=== PATIENT | female | born 1995 | race Two or more races ===

== ENCOUNTER 2021-04-08 11:22 | Emergency (ER) | payer SELFPAY ==
[~2021-04-08] VITALS: Ht 160 cm; Wt 88.9 kg
[2021-04-08 11:29] VITALS: BP 123/85
--- NOTE | 2021-04-08 11:35 | NUR ---
SEEN AND EXAMINED BY .
--- NOTE | 2021-04-08 11:38 | NUR ---
DAIRY CONSULTANT AT BEDSIDE FOR XRAY.
[2021-04-08] MEDS ORDERED: TDAP [DIPH/PERTUSSIS/TET] 0.5 ML VIAL IM ONE ×2 (11:41→12:00)
--- NOTE | 2021-04-08 11:50 | NUR ---
IDA KNOX AT BEDSIDE FOR WOUND CLEANING AND DRESSING.
--- NOTE | 2021-04-08 12:30 | NUR ---
Patient discharged to home in stable condition. Written and verbal after care instructions given. Patient verbalizes understanding of instruction.
== END 2021-04-08 12:31 | disposition home or self-care (01) ==
LOC: ER 11:22
DX: S80.01XA Contusion of right knee, initial encounter (principal); W01.0XXA Fall on same level from slipping, tripping and stumbling without subsequent striking against object, initial encounter; Y93.89 Activity, other specified; Y92.89 Other specified places as the place of occurrence of the external cause; Y99.8 Other external cause status
CPT/HCPCS: 73564-TC; 90715

== ENCOUNTER 2022-03-21 17:48 | Emergency (ER) | payer OTHER ==
[~2022-03-21] VITALS: Ht 157.5 cm; Wt 97.5 kg
--- NOTE | 2022-03-21 18:15 | NUR ---
julia "chest pain started 1H ago going to back pressure like. 03/04"
--- NOTE | 2022-03-21 18:20 | NUR ---
established IV line 20g left forearm
[2022-03-21] MEDS ORDERED: MORPHINE SULFATE INJ 2 MG/ML DISP.SYRIN ONE (18:56)
[2022-03-21] MEDS ORDERED: LIDOCAINE VISCOUS 2% UD 15 ML UDC ONE (18:56)
[2022-03-21] MEDS ORDERED: MAG HYDROX/AL HYDROX/SIMETH 30 ML UDC ONE (18:56)
[2022-03-21] MEDS: MAG HYDROX/AL HYDROX/SIMETH 30 ML UDC PO ONE (19:00)
[2022-03-21] MEDS: LIDOCAINE VISCOUS 2% UD 15 ML UDC MM ONE (19:00)
[2022-03-21] MEDS: MORPHINE SULFATE INJ 2 MG/ML DISP.SYRIN IV ONE (19:02)
--- NOTE | 2022-03-21 19:21 | NUR ---
US TECH AT PT'S BEDSIDE
[2022-03-21 19:47] LABS: CREATININE 0.8 mg/dL (0.6-1.3); POTASSIUM 4.1 mmol/L (3.5-5.1)
[2022-03-21 19:52] LABS: ALBUMIN 3.9 g/dL (3.4-5.0); BILIRUBIN,DIRECT 0.1 mg/dL (0.0-0.2); BILIRUBIN,TOTAL 0.4 mg/dL (0.2-1.0); TOTAL PROTEIN, SERUM 7.9 g/dL (6.4-8.2)
[2022-03-21 20:05] LABS: BASOPHILS % (AUTO) 0.2 % (0.0-2.0); EOSINOPHILS % (AUTO) 1.7 % (0.0-6.0); HEMATOCRIT 42 % (33-45); HEMOGLOBIN 14.7 g/dL (11.5-14.8); LYMPHOCYTES # (AUTO) 1.8 K/uL (0.8-4.8); LYMPHOCYTES % (AUTO) 18.7 % (20.0-44.0); MEAN CORPUSCULAR HGB CONC 35 g/dl (31.0-36.0); MEAN CORPUSCULAR VOLUME 91 fL (82-100); MONOCYTES # (AUTO) 0.5 K/uL (0.1-1.30); MONOCYTES % (AUTO) 5.6 % (2.0-12.0); NEUTROPHILS # (AUTO) 7.2 K/uL (1.8-8.9); NEUTROPHILS % (AUTO) 73.8 % (43.0-81.0); PLATELET COUNT (AUTO) 304 K/uL (150-450); WHITE BLOOD COUNT (AUTO) 9.7 K/uL (4.3-11.0)
[2022-03-21] MEDS ORDERED: OMEP20TA5 PO (21:17)
[2022-03-21 21:20] LABS: BILIRUBIN,URINE NEGATIVE (NEGATIVE); COLOR,URINE YELLOW (YELLOW); LEUKOCYTE ESTERASE ,URINE NEGATIVE (NEGATIVE); NITRITE, URINE NEGATIVE (NEGATIVE); PH,URINE 5.5 (5.0-8.0); PROTEIN,URINE NEGATIVE (NEGATIVE); UGLUCOSE NEGATIVE (NEGATIVE); UROBILINOGEN,URINE 0.2 EU/dL (0.2)
[2022-03-21 21:42] VITALS: BP 131/81
--- NOTE | 2022-03-21 21:42 | NUR ---
Patient discharged to home in stable condition. RX Written and verbal after care instructions given. Patient verbalizes understanding of instruction. IV removed. Catheter intact and site benign. Pressure and 4x4 applied to site. No bleeding noted. pt ambulatory with a steady gait
== END 2022-03-21 21:43 | disposition home or self-care (01) ==
LOC: ER 17:54
DX: R10.13 Epigastric pain (principal); K29.70 Gastritis, unspecified, without bleeding; R10.11 Right upper quadrant pain; R10.31 Right lower quadrant pain; Z79.899 Other long term (current) drug therapy
CPT/HCPCS: 99285; 96374; 76700; 71045; 93005 ×2; 85025; 80048; 83690; 80076; 84703; 81003; 36415; J2270

== ENCOUNTER 2022-08-04 11:58 | Emergency (ER) | payer OTHER ==
[~2022-08-04] VITALS: Ht 160 cm; Wt 86.2 kg
[~2022-08-04 11:58] MED LIST: OMEP20TA5 PO
[2022-08-04 12:10] VITALS: BP 134/76
--- NOTE | 2022-08-04 12:42 | NUR ---
PT IN BED 1 A/O X4 SAYS SHE ROLLED HER LEFT ANKLE AND IS NOW EXPERIENCING PAIN 8/10. LEFT ANKLE IS SWOLLEN AND WARM TO TOUCH. PT ALIYA VEGA.
[2022-08-04] MEDS ORDERED: KETOROLAC TROMETHAMINE INJ 30 MG/ML VIAL ONE (12:55)
[2022-08-04] MEDS ORDERED: KETOROLAC TROMETHAMINE INJ 30 MG/ML VIAL IM ONE (13:00)
[2022-08-04] MEDS ORDERED: IBUP-1955 PO (13:21)
--- NOTE | 2022-08-04 13:48 | NUR ---
Patient discharged to home in stable condition. Written and verbal after care instructions given. Patient verbalizes understanding of instruction.
== END 2022-08-04 13:54 | disposition home or self-care (01) ==
LOC: ER 12:04
DX: S93.402A Sprain of unspecified ligament of left ankle, initial encounter (principal); Z79.899 Other long term (current) drug therapy; W18.30XA Fall on same level, unspecified, initial encounter; Y93.89 Activity, other specified; Y92.89 Other specified places as the place of occurrence of the external cause; Y99.8 Other external cause status
CPT/HCPCS: 99283; 96372; 73610; J1885

== ENCOUNTER 2022-08-12 18:25 | Emergency (ER) | payer OTHER ==
[~2022-08-12 18:25] MED LIST changes: +IBUP-1955 PO
--- NOTE | 2022-08-12 19:41 | NUR ---
CALLED FOR TRIAGE. NO ROSIE.
--- NOTE | 2022-08-12 19:54 | NUR ---
CALLED FOR TRIAGE. NO ROSIE.
== END 2022-08-12 19:58 | disposition left against medical advice (07) ==
LOC: ER 18:30
DX: Z53.21 Procedure and treatment not carried out due to patient leaving prior to being seen by health care provider (principal)

== ENCOUNTER 2022-10-07 15:16 | Inpatient (IN) | payer OTHER ==
[~2022-10-07] VITALS: Ht 160 cm; Wt 96.2 kg
--- NOTE | 2022-10-07 15:22 | NUR ---
LOW ABDOMINAL PAIN AND BLOOD IN HER STOOL X 1 WEEK
--- NOTE | 2022-10-07 15:28 | NUR ---
URINE SAMPLE OBTAINED SENT TO LAB
--- NOTE | 2022-10-07 15:54 | NUR ---
IV ESTABLISHED L AC 20G. LABS DRAWN AND COLLECTED AT BEDSIDE
[2022-10-07 16:06] LABS: BASOPHILS % (AUTO) 0.3 % (0.0-2.0); EOSINOPHILS % (AUTO) 1.2 % (0.0-6.0); HEMATOCRIT 43 % (33-45); HEMOGLOBIN 14.3 g/dL (11.5-14.8); LYMPHOCYTES # (AUTO) 1.6 K/uL (0.8-4.8); LYMPHOCYTES % (AUTO) 16.4 % (20.0-44.0); MEAN CORPUSCULAR HGB CONC 33 g/dl (31.0-36.0); MEAN CORPUSCULAR VOLUME 93 fL (82-100); MONOCYTES # (AUTO) 0.7 K/uL (0.1-1.30); NEUTROPHILS # (AUTO) 7.3 K/uL (1.8-8.9); NEUTROPHILS % (AUTO) 75.1 % (43.0-81.0); PLATELET COUNT (AUTO) 291 K/uL (150-450); RED BLOOD CELL COUNT(AUTO) 4.58 MIL/uL (4.0-5.2); WHITE BLOOD COUNT (AUTO) 9.7 K/uL (4.3-11.0)
[2022-10-07] MEDS ORDERED: ONDANSETRON HCL/PF 4 MG/2 ML VIAL ONE ×2 (16:11→18:42)
[2022-10-07] MEDS ORDERED: MORPHINE SULFATE INJ 4 MG/ML DISP.SYRIN ONE (16:11)
[2022-10-07 16:14] LABS: BILIRUBIN,URINE NEGATIVE (NEGATIVE); COLOR,URINE YELLOW (YELLOW); LEUKOCYTE ESTERASE ,URINE NEGATIVE (NEGATIVE); NITRITE, URINE NEGATIVE (NEGATIVE); PH,URINE 5.5 (5.0-8.0); PROTEIN,URINE NEGATIVE (NEGATIVE); UGLUCOSE NEGATIVE (NEGATIVE); UROBILINOGEN,URINE 0.2 EU/dL (0.2)
[2022-10-07 16:23] LABS: CALCIUM, SERUM 8.7 mg/dL (8.5-10.1); CREATININE 0.6 mg/dL (0.6-1.3)
[2022-10-07 16:28] LABS: ALBUMIN 3.5 g/dL (3.4-5.0); BILIRUBIN,DIRECT 0.1 mg/dL (0.0-0.2); BILIRUBIN,TOTAL 0.6 mg/dL (0.2-1.0); TOTAL PROTEIN, SERUM 7.3 g/dL (6.4-8.2)
[2022-10-07] MEDS ORDERED: ONDANSETRON HCL/PF 4 MG/2 ML VIAL IV ONE (16:30)
[2022-10-07] MEDS ORDERED: MORPHINE SULFATE INJ 2 MG/ML DISP.SYRIN IV ONE (16:30)
[2022-10-07 17:01] LABS: BACTERIA,URINE None seen /HPF (None Seen); MUCUS,URINE Moderate /LPF (None Seen); RBC,URINE 0-2 /HPF (0-2); WBC,URINE 0-2 /HPF (0-3)
--- NOTE | 2022-10-07 17:09 | NUR ---
PT TAKEN TO CT [facility]IA [facility]
--- NOTE | 2022-10-07 17:25 | NUR ---
PT RETURNED FROM [facility] VIA [facility]
--- NOTE | 2022-10-07 18:19 | NUR ---
MOVE SHEET SUBMITTED.
--- NOTE | 2022-10-07 18:22 | NUR ---
DR. FINNEGAN SPEAKING WITH DR. CARVAJAL.
[2022-10-07] MEDS ORDERED: ONDANSETRON HCL/PF 4 MG/2 ML VIAL IVP ONE (18:30)
[2022-10-07] MEDS ORDERED: HYDROMORPHONE 1 MG/1 ML DISP.SYRIN IV ONE (18:30)
[2022-10-07] MEDS ORDERED: IV NS 0.9% 1,000 ML BAG IV ONE (18:30)
[2022-10-07] MEDS ORDERED: HYDROMORPHONE 1 MG/1 ML DISP.SYRIN ONE (18:42)
--- NOTE | 2022-10-07 18:48 | NUR ---
PANKAJ COLLECTED AND SENT
--- NOTE | 2022-10-07 19:23 | NUR ---
EPIC PAGED, AWAITING CALLBACK.
--- NOTE | 2022-10-07 19:30 | NUR ---
RECEIVED REPORT FROM OLEG BRICEÑO. PATIENT IS AAOX4. FOR ADMISSION D/T POSS APPENDECITIS. NOT IN PAIN AT THE MOMENT. PT IS ADVISED NOT TO TAKE ANYTHING BY MOUTH. PATIENT HAS IV RADHA ON LEFT AC G20.
--- NOTE | 2022-10-07 20:20 | NUR ---
EUGENE (FAMILY MEMBER) [phone]
[2022-10-07] MEDS ORDERED: ACETAMINOPHEN 650 MG/SUPP.RECT RC PRN (20:30)
[2022-10-07] MEDS ORDERED: ONDANSETRON HCL/PF 4 MG/2 ML VIAL IVP PRN (20:30)
--- NOTE | 2022-10-07 20:43 | NUR ---
REPORT GIVEN TO HIEN MENESES
--- NOTE | 2022-10-07 21:29 | NUR ---
TRANSFERRED TO ROOM
[2022-10-07 21:30] VITALS: BP 137/97
--- NOTE | 2022-10-07 21:30 | NUR ---
MS BATTER MIXER INITIAL NOTES ADMIT PATIENT FROM ER VIA GURNEY ACCOMPANIED BY HER FAMILY . DX OF APPENDICITIS. PT IS A/O X4 BALE TO AMBULATE WITHOUT ANY PAIN OR ANY DISCOMFORT. NO SIGNS OF ANY ABDOMINAL PAIN OR N/V NOTED AT THIS TIME. ASSESSMENT DONE AND RECORDED. HEPLOCK ON HER LEFT AC GAUGE 20 PATENT AND INTACT. AWARE WHERE SHE AT JUST ORIENTED HER HOW TO USE THE CALL LIGHT SYSTEM . KEPT HER WARM AND COMFORTABLE AT ALL TIMES. BED IN LOW AND LOCK IN POSITION WITH SIDE RAILS X2 UP AND PLACE CALL LIGHT AT REACH. WILL CONTINUE MONITORING.
[2022-10-07] MEDS: IV D5/0.45 NACL 1,000 ML IV PRN (22:52)
[2022-10-07] MEDS ORDERED: PIPERACI/TAZO 3.375GM/D5W 50ML PB IV ONE (23:14)
[2022-10-08] MEDS: PIPERACILLIN /TAZOBACTAM 3.375 G in IV D5W 50 ML IV SCH ×4 (00:01→18:00)
[2022-10-08] MEDS: MORPHINE SULFATE INJ 2 MG/ML DISP.SYRIN IV PRN ×3 (01:59→10:40)
--- NOTE | 2022-10-08 01:59 | NUR ---
MS MONY NOTES PATIENT COMPLAINT OF LOW ABDOMINAL PAIN NO N/V NOTED, MORPHINE IVP GIVEN BY ANOTHER NURSE VIEL/RN ORDERED. EDUCATE PT THE SIDE EFFECT OF THE MEDICATION AND SHE UNDERSTOOD WELL. IVF D51/2 NS AT 75ML/HR STILL INFUSING ORDERED. WILL CONTINUE MONITORING. PLACE CALL LIGHT AT REACH.
[2022-10-08 07:01] LABS: BASOPHILS % (AUTO) 0.2 % (0.0-2.0); EOSINOPHILS % (AUTO) 1.2 % (0.0-6.0); HEMATOCRIT 38 % (33-45); LYMPHOCYTES # (AUTO) 1.1 K/uL (0.8-4.8); LYMPHOCYTES % (AUTO) 13.8 % (20.0-44.0); MEAN CORPUSCULAR HGB CONC 34 g/dl (31.0-36.0); MEAN CORPUSCULAR VOLUME 93 fL (82-100); MONOCYTES # (AUTO) 0.6 K/uL (0.1-1.30); NEUTROPHILS # (AUTO) 6.4 K/uL (1.8-8.9); NEUTROPHILS % (AUTO) 77.8 % (43.0-81.0); PLATELET COUNT (AUTO) 257 K/uL (150-450); WHITE BLOOD COUNT (AUTO) 8.3 K/uL (4.3-11.0)
--- NOTE | 2022-10-08 07:22 | NUR ---
MS CONSUMER INSIGHT ANALYST CLOSING NOTES PT BACK TO REST AFTER PAIN MEDICATION GIVEN PER PT REQUESTED FOR HER ABDOMINAL PAIN . NO N/V NOTED. IVF D51/2 NS AT 75ML/HR STILL INFUSING ON HER LEFT AC. ALL DUE MEDS GIVEN. KEPT HER WARM AND COMFORTABLE AT ALL TIMES. BED IN LOW AND LOCK IN POSITION WITH SIDE RAILS X2 UP . PLACE CALL LIGHT AT REACH. ENDORSE TO AM NURSE FOR CONTINUITY OF CARE.
--- NOTE | 2022-10-08 07:40 | NUR ---
MS RN OPENING NOTES: RECEIVED PT AWAKE, A/OX4, ABLE TO MAKE NEEDS KNOWN. DENIES PAIN AT THIS TIME. ON RA WITH NO S/S OF SOB. IV ACCESS AT L AC #20 RUNNING D5 1/2NS@75ML/HR. PT ON NPO STATUS SINCE MIDNIGHT. ALL SAFETY MEASURES IN PLACE, CALL LIGHT AND TABLE WITHIN EASY REACH; WILL CONT WITH PLAN OF CARE DURING SHIFT.
[2022-10-08 07:42] LABS: CALCIUM, SERUM 8.4 mg/dL (8.5-10.1); CREATININE 0.7 mg/dL (0.6-1.3); MAGNESIUM 1.9 mg/dL (1.8-2.4); PHOSPHORUS 2.5 mg/dL (2.5-4.9); POTASSIUM 3.7 mmol/L (3.5-5.1)
[2022-10-08 08:00] VITALS: BP 122/68
[2022-10-08] MEDS: PANTOPRAZOLE 40 MG TABLET.DR PO SCH (09:34)
[2022-10-08] MEDS ORDERED: BUPIVACAINE MPF 0.5% W/EPI INJ 30 ML VIAL ONE (14:37)
[2022-10-08] MEDS ORDERED: LIDOCAINE 1% INJ 50 ML MDV IJ ONE (14:38)
[2022-10-08 15:48] VITALS: BP 111/63
--- NOTE | 2022-10-08 16:45 | NUR ---
RN NOTES: PT PICKED UP BY OR STAFF, ALL CONSENTS SIGNED, ATTACHED TO CHART
--- NOTE | 2022-10-08 18:21 | NUR ---
RN NOTES: IV ABX HELD, PT IS IN SURGERY
[2022-10-08] MEDS ORDERED: FENTANYL PF 250MCG/5ML AMPUL ONE (18:32)
[2022-10-08] MEDS ORDERED: MIDAZOLAM HCL 2 MG/2ML VIAL ONE (18:33)
[2022-10-08] MEDS ORDERED: FAMOTIDINE/PF INJ 20 MG/2 ML VIAL IV ONE (18:33)
[2022-10-08] MEDS ORDERED: HYDROMORPHONE INJ 2 MG/ML DISP.SYRIN ONE (18:33)
[2022-10-08] MEDS ORDERED: GLYCOPYRROLATE 0.2 MG/ML VIAL ONE (18:34)
[2022-10-08] MEDS ORDERED: ROCURONIUM BROMIDE 50 MG/5 ML ONE (18:34)
--- NOTE | 2022-10-08 19:30 | NUR ---
MSRN PATIENT STILL IN OR. TO CONTINUE.
[2022-10-08 20:00] VITALS: BP 123/76
--- NOTE | 2022-10-08 21:00 | NUR ---
MSRN BACK FROM OR REPORT RECEIVED FROM OR STAFF. V/S MONITORED.
[2022-10-08] MEDS: IV D5/0.45 NACL 1,000 ML IV PRN (21:37)
[2022-10-09] MEDS: PIPERACILLIN /TAZOBACTAM 3.375 G in IV D5W 50 ML IV SCH ×3 (00:36→11:04)
--- NOTE | 2022-10-09 02:10 | NUR ---
MSRN BRP VOIDED FREELY. GOT NAUSEATED ZOFRAN IVP ADMINISTERED. IVF CONTINUED.
--- NOTE | 2022-10-09 06:30 | NUR ---
MSRN ON AND OFF NAUSEA WITH DRY HEAVES. POST OP PAIN UNBEARABLE THIS TIME. MORPHINE 2 MG IVP ADMINISTERED ORDERED. ENCOURAGED USE OF INCENTIVE SPIROMETRY WHILE AWAKE. IVF CONTINUED.
[2022-10-09] MEDS: MORPHINE SULFATE INJ 2 MG/ML DISP.SYRIN IV PRN (06:49)
[2022-10-09 07:00] VITALS: BP 113/65
--- NOTE | 2022-10-09 07:22 | NUR ---
MS RN OPENING NOTES RECEIVED PATIENT IN BED AWAKE, A/O X4. ABLE TO MAKE NEEDS KNOWN. HOB ELEVATED. SURGICAL INCISIONS ON ABDOMEN INTACT WITH STERILE STRIPS IN PLACE. ON ROOM AIR, TOLERATING WELL, NO SOB NOTED, BREATHING EVEN AND UNLABORED. IV ACCESS ON LAC G#20 INTACT WITH IVF OF D5 1/2 NS @ 75 ML/HR INFUSING WELL, NO S/S OF INFILTRATION AT SITE NOTED. ALL SAFETY MEASURES IN PLACE: BED IN LOWEST AND LOCKED POSITION; SIDE RAILS UP X2; CALL LIGHT WITHIN EASY REACH. WILL CONTINUE TO MONITOR PT.
[2022-10-09] MEDS: PANTOPRAZOLE 40 MG TABLET.DR PO SCH (07:48)
[2022-10-09] MEDS: GABAPENTIN 100 MG CAPSULE PO SCH ×2 (08:49→12:11)
--- NOTE | 2022-10-09 14:08 | NUR ---
RN NOTES PT SEEN BY MARI FITCH AND CLEARED PT FOR D/C WITH ORDER TO F/U WITH [facility] IN 2-3 WEEKS.
--- NOTE | 2022-10-09 15:31 | NUR ---
RN DISCHARGED NOTES PT DISCHARGED HOME IN STABLE CONDITION. A/O X4. ABLE TO MAKE NEEDS KNOWN. V/S TAKEN, STABLE AND RECORDED. PHOTOS OF ABDOMINAL SURGICAL INCISIONS TAKEN AND FILED ON HER CHART, INCISIONS INTACT WITH STERILE STRIPS IN PLACE. ALL BELONGINGS ACCOUNTED FOR AND PT SIGNED BELONGINGS LIST. IV ACCESS ON LFA G#22 REMOVED WITH NO ACTIVE BLEEDING NOTED, DRY DRESSING APPLIED AT SITE. HEALTH TEACHINGS/DISCHARGED INSTRUCTIONS GIVEN TO PT THOROUGHLY ESPECIALLY F/U WITH SURGEON AND OVER THE COUNTER PAIN MEDICATIONS, PT VERBALIZED UNDERSTANDING. PT LEFT UNIT AT 1525 VIA WHEELCHAIR ACCOMPANIED BY CHIQUITA MARTEL AND PT'S BOYFRIEND BIANCA. AND CHARGE NURSE AWARE OF D/C.
== END 2022-10-09 15:30 | disposition home or self-care (01) | DRG 234 ==
LOC: ER 15:20 → MED 20:26
PROVIDERS: ADMIT Nurse Practitioner Family; ATTEND Nurse Practitioner Acute Care
PROC: 0DTJ4ZZ Resection of Appendix, Percutaneous Endoscopic Approach (ICD-10-PCS; principal; 2022-10-08)
DX: K35.80 Unspecified acute appendicitis (principal); E66.9 Obesity, unspecified; Z20.822 Contact with and (suspected) exposure to COVID-19; Z68.38 Body mass index [BMI] 38.0-38.9, adult; Z98.890 Other specified postprocedural states
CPT/HCPCS: 36415; 71045-TC; 80048-TC; 80076-TC; 81001; 83605-TC; 83690-TC; 83735-TC; 84100-TC; 84703-TC; 85025-TC; 85730-TC; 87040-TC; 87081-TC; A4223; C9803; G0378; J0690; J1100; J1170; J2250; J2270; J2405; J2543; J2704; J2765; J3010; J3490; J7030; J7060

== ENCOUNTER 2024-12-19 10:47 | Emergency (ER) | payer SELFPAY ==
[~2024-12-19] VITALS: Ht 160 cm; Wt 77.1 kg
[2024-12-19 13:31] LABS: PLATELET COUNT (AUTO) 271 K/uL (150-450); RED BLOOD CELL COUNT(AUTO) 4.91 MIL/uL (4.0-5.2); RED CELL DISTRIBUTION WIDTH 13.4 % (11.5-15.0); WHITE BLOOD COUNT (AUTO) 6.8 K/uL (4.3-11.0)
[2024-12-19 13:53] LABS: ASPARTATE AMINOTRANSFERASE 15 U/L (15-37); CALCIUM, SERUM 9.2 mg/dL (8.5-10.1); CREATININE 0.6 mg/dL (0.6-1.3); SODIUM SERUM 141 mmol/L (136-145); TOTAL PROTEIN, SERUM 7.7 g/dL (6.4-8.2); UREA NITROGEN, BLOOD 16 mg/dL (7-18)
[2024-12-19] MEDS ORDERED: KETOROLAC TROMETHAMINE INJ 30 MG/ML VIAL ONE (14:45)
[2024-12-19] MEDS ORDERED: ONDANSETRON 4 MG TAB.RAPDIS ONE (14:45)
[2024-12-19] MEDS ORDERED: ACETAMINOPHEN ES 500 MG TABLET ONE (14:45)
[2024-12-19] MEDS: ACETAMINOPHEN ES 500 MG TABLET PO ONE (14:51)
[2024-12-19] MEDS: KETOROLAC TROMETHAMINE INJ 30 MG/ML VIAL IM ONE (14:51)
[2024-12-19 14:52] LABS: PREGNANCY TEST URINE QUAL NEGATIVE (NEGATIVE)
[2024-12-19] MEDS: ONDANSETRON 4 MG TAB.RAPDIS SL ONE (14:52)
[2024-12-19 15:04] LABS: APPEARANCE,URINE CLEAR (CLEAR); BLOOD, URINE 3+ Ery/uL (NEGATIVE); LEUKOCYTE ESTERASE ,URINE NEGATIVE (NEGATIVE); NITRITE, URINE POSITIVE (NEGATIVE); UGLUCOSE NEGATIVE (NEGATIVE)
[2024-12-19 15:10] LABS: ADD URINE CULTURE YES; SQUAMOUS EPITHELIAL CELL,UR 21-50 /HPF (None Seen); URINE AMORPHOUS URATE Few /HPF (None Seen)
[2024-12-19] MEDS ORDERED: CEPH-570 PO (15:35)
[2024-12-19 15:53] VITALS: BP 122/89; TEMP 98.6; O2SAT 95
[2024-12-19] MEDS ORDERED: ONDA4TAB11 PO (16:29)
== END 2024-12-19 15:54 | disposition home or self-care (01) ==
LOC: ER 10:47
DX: R10.2 Pelvic and perineal pain (principal); N39.0 Urinary tract infection, site not specified; F17.200 Nicotine dependence, unspecified, uncomplicated; N93.9 Abnormal uterine and vaginal bleeding, unspecified
CPT/HCPCS: 99285; 76856; 71045; 96372; 93005; 85025; 80048; 80076; 81001; 36415; 84484 ×2; 84703 ×2; J1885; Q0162; 87086-TC